=== PATIENT | female | born 1945 | race Caucasian/White ===

== ENCOUNTER 2017-04-21 09:32 | Emergency (ER) | payer MEDICARE, OTHER ==
[~2017-04-21] VITALS: Ht 157.5 cm; Wt 90.0 kg
[2017-04-21 09:33] VITALS: BP 141/86; PULSE 104; RESP 18; TEMP 98.5; O2SAT 95
[2017-04-21 10:00] VITALS: RESP 18; O2SAT 98
[2017-04-21] MEDS ORDERED: FAMOTIDINE 20 MG/2 ML VIAL IV PUSH ONE (10:00)
[2017-04-21] MEDS ORDERED: EPINEPHrine HCL (1:1000) 1 MG/ML VIAL IM ONE (10:00)
[2017-04-21] MEDS ORDERED: SODIUM CHLORIDE 0.9% FLUSH 10 ML FLUSH IV FLUSH PRN (10:00)
[2017-04-21] MEDS ORDERED: methylPREDNISolone SOD SUCC 125 MG/2 ML VIAL IV PUSH ONE (10:00)
[2017-04-21] MEDS ORDERED: diphenhydrAMINE HCL 50 MG/ML VIAL IVP ONE (10:00)
--- NOTE | 2017-04-21 10:04 | PD ---
HPI Chief Complaint: Allergic/Adverse Reaction Time Seen by Provider: 09:44 Travel History International Travel<30 days: No Contact w/Intl Traveler<30days: No Traveled to known affect area: No History of Present Illness HPI The patient was seen and examined in the presence of the nurse. This patient complains of allergic reaction. She is here vacationing from [place]. This morning she developed itchy rash that started on her face and spread to her trunk and now her legs. She is getting swelling around the face. She took Benadryl at 5 AM. Her only new medication is Celebrex started one or 2 weeks ago. Symptoms severity is moderate. No alleviating factors. No Exacerbating factors. Duration is 5 hours PFSH Past Medical History Respiratory: Yes Social History Alcohol Use: No Tobacco Use: No Substance Use: No Allergies-Medications (Allergen,Severity, Reaction): Coded Allergies: Penicillins (Verified Allergy, Intermediate, SORE THROAT, 04/21/17) Uncoded Allergies: TAPE (Adverse Reaction, Intermediate, RASH, 04/21/17) Reported Meds & Prescriptions Reported Meds & Active Scripts Active Reported Serevent Diskus Inh (Salmeterol Xinafoate) 50 Mcg/Act Aero 50 Mcg INH DAILY Flovent Hfa 10.6 GM Inh (Fluticasone Propionate) 44 Mcg/Act Inh 2 Puff INH DAILY Use daily at the same time. Gabapentin 300 Mg Cap 300 Mg PO HS Tolterodine (Tolterodine Tartrate) 2 Mg Tab 2 Mg PO BID Flexeril (Cyclobenzaprine HCl) 10 Mg Tab 10 Mg PO TID Dilaudid (Hydromorphone HCl) 2 Mg Tab 2 Mg PO Q6H PRN Famotidine 40 Mg Tab 40 Mg PO HS Premarin (Estrogens Conjugated) 0.3 Mg Tab 0.3 Mg PO EVERY OTHER DAY Premarin (Estrogens, Conjugated) 0.45 Mg Tab 0.45 Mg PO EVERY OTHER DAY Celebrex (Celecoxib) 200 Mg Cap 200 Mg PO BID Review of Systems General / Constitutional: No: Fever Eyes: No: Visual changes HENT: No: Headaches Cardiovascular: No: Chest Pain or Discomfort Respiratory: No: Shortness of Breath Gastrointestinal: No: Abdominal Pain Genitourinary: No: Dysuria Musculoskeletal: No: Pain Skin: Positive Rash, Positive Itching, Positive Hives Neurologic: No: Weakness Psychiatric: No: Depression Endocrine: No: Polydipsia Hematologic/Lymphatic: No: Easy Bruising Physical Exam Narrative GENERAL: Well-nourished, well-developed patient with diffuse allergic reaction . SKIN: Focused skin assessment reveals urticarial rash all over the face and neck as well as rash on the trunk and left foot . Skin is Warm and dry. HEAD: Atraumatic. Normocephalic. EYES: Pupils equal and round. No scleral icterus. No injection or drainage. ENT: No nasal bleeding or discharge. Mucous membranes pink and moist. Patient has some facial edema. Uvula is midline without swelling NECK: Trachea midline. No JVD. CARDIOVASCULAR: Regular rate and rhythm. No murmur appreciated. RESPIRATORY: No accessory muscle use. Clear to auscultation. Breath sounds equal bilaterally. GASTROINTESTINAL: Abdomen soft, non-tender, nondistended. Hepatic and splenic margins not palpable. MUSCULOSKELETAL: No obvious deformities. No clubbing. No cyanosis. No extremity edema. NEUROLOGICAL: Awake and alert. No obvious cranial nerve deficits. Motor grossly within normal limits. Normal speech. PSYCHIATRIC: Appropriate mood and affect; insight and judgment normal. Data Data Last Documented VS Vital Signs Date Time Temp Pulse Resp B/P (MAP) Pulse Ox O2 Delivery O2 Flow Rate FiO2 04/21/17 10:54 98 18 131/75 (93) 97 Room Air 04/21/17 09:33 98.5 Orders Orders Ecg Monitoring (04/21/17 09:54) Iv Access Insert/Monitor (04/21/17 09:54) Oximetry (04/21/17 09:54) Diphenhydramine Inj (Benadryl Inj) (04/21/17 10:00) Methylprednisolone So Succ Inj (Solumedr (04/21/17 10:00) Famotidine Inj (Pepcid Inj) (04/21/17 10:00) Sodium Chloride 0.9% Flush (Ns Flush) (04/21/17 10:00) Epinephrine (1:1000) Inj (Adrenalin (1:1 (04/21/17 10:00) MDM Medical Decision Making Medical Screen Exam Complete: Yes Emergency Medical Condition: Yes Medical Record Reviewed: Yes Differential Diagnosis Allergic reaction, anaphylaxis, Loredo-Fernie syndrome Narrative Course I have reviewed the patient's electronic medical record. Patient is having serious allergic reaction. Swelling about the face and near airway structures IV placed I gave her intramuscular epinephrine I gave her IV Benadryl and Pepcid and Solu-Medrol Extended cardiac monitoring reveals sinus rhythm, borderline tachycardia without ectopy I'm observing her frequently and doing a lot of rechecks to ensure this is not worsening Patient has had some slow and gradual improvement. After a couple hours of medications and monitoring she is at this time stable for outpatient follow-up. The facial swelling has resolved. She still has some rash but looks improved At this point reaction is limited to skin I prescribed her 40 mg of prednisone for the next 3 days and she will use Benadryl every 6 hours as needed watching for drowsiness I don't think she needs more epinephrine at this point She will avoid Celebrex and sulfa Critical Care Narrative Aggregate critical care time was 32 minutes. Time to perform other separately billable procedures was not included in the critical care time. My time did not include minutes spent treating any other patients simultaneously or on activities that did not directly contribute to the patient's treatment. The services I provided to this patient were to treat and/or prevent clinically significant deterioration that could result in: Loss of airway, cardiopulmonary arrest I provided critical care services requiring my management, as noted below: Chart data review, documentation time, medication orders and management, vital sign assessments/reviewing monitor data, ordering and reviewing lab tests, ordering and interpreting/reviewing x-rays and diagnostic studies, care of the patient and discussion of the patient with the admitting physicians. Diagnosis Primary Impression: Acute allergic reaction Qualified Codes: T78.40XA - Allergy, unspecified, initial encounter Additional Instructions: The patient was advised to follow up with their physician and return if they worsen. Med/Other Pt SpecificInfo: Prescription(s) given Scripts Prednisone (Prednisone) 20 Mg Tab 40 MG PO DAILY, #6 TAB 0 Refills Take 40 mg (2 tablets) daily for 5 days Prov: Calvin Morillo MD 04/21/17 Disposition: 01 DISCHARGE HOME Condition: Stable Calvin Morillo MD Apr 21, 2017 10:04
[2017-04-21 10:35] VITALS: BP 141/86; PULSE 90; RESP 18; O2SAT 98
[2017-04-21] MEDS ORDERED: PREM0.45 PO (10:39)
[2017-04-21] MEDS ORDERED: TOLT1TAB16 PO (10:39)
[2017-04-21] MEDS ORDERED: GABA300C5 PO (10:39)
[2017-04-21] MEDS ORDERED: DILA2TAB4 PO (10:39)
[2017-04-21] MEDS ORDERED: ESTR.3 PO (10:39)
[2017-04-21] MEDS ORDERED: CYCL10TA PO (10:39)
[2017-04-21] MEDS ORDERED: CELE200C PO (10:39)
[2017-04-21] MEDS ORDERED: SALM50I INH (10:39)
[2017-04-21] MEDS ORDERED: FLUTI44I INH (10:39)
[2017-04-21] MEDS ORDERED: FAMO40TA PO (10:39)
[2017-04-21 10:54] VITALS: BP 131/75; PULSE 98; RESP 18; O2SAT 97
[2017-04-21] MEDS ORDERED: PRED20 PO (11:27)
== END 2017-04-21 12:02 | disposition home or self-care (01) ==
LOC: PHED 09:32
DX: T78.40XA Allergy, unspecified, initial encounter (principal); Z87.09 Personal history of other diseases of the respiratory system
CPT/HCPCS: 96372; 96374; 96375; 99284; J0171; J1200; J2930